=== PATIENT | male | born 1955 | race Caucasian/White ===

== ENCOUNTER 2020-11-01 23:30 | Inpatient (IN) | payer OTHER ==
[2020-11-02 00:04] VITALS: BMI 26.6
[2020-11-02 00:25] LABS: BASO % 0.8 % (0-2.0); EOS % 2.3 % (0-4.5); HEMATOCRIT 39.7 % (35.4-49); HEMOGLOBIN 13.1 GM/dL (11.7-16.9); LYMPH % 34.8 % (8-40); MCH 27.3 pg (25.7-33.7); MEAN CELL VOLUME 82.8 fl (80-96); MEAN PLT VOLUME 8.1 fl (7.5-11.1); MONO % 6.7 % (3.8-10.2); NEUT % 55.4 % (42.8-82.8); PLATELET COUNT 297 K/MM3 (134-434); RBC 4.79 M/mm3 (4.00-5.60); RDW 14.5 % (11.9-15.9); WHITE BLOOD COUNT 8.1 K/mm3 (4.0-10.0)
[2020-11-02 00:39] LABS: CHLORIDE 106 mmol/L (98-107); SODIUM 141 mmol/L (136-145)
[2020-11-02 00:41] LABS: CALCIUM 8.8 mg/dL (8.5-10.1)
[2020-11-02 00:42] LABS: ALBUMIN 3.2 g/dl (3.4-5.0); ANION GAP 6 MMOL/L (8-16); BLOOD UREA NITROGEN 29.5 mg/dL (7-18); CO2 29 mmol/L (21-32); GLUCOSE,RANDOM 113 mg/dL (74-106)
[2020-11-02 00:45] LABS: CREATININE 1.3 mg/dL (0.55-1.3); SGOT/AST 22 U/L (15-37); SGPT/ALT 27 U/L (13-61)
[2020-11-02 00:46] LABS: MAGNESIUM 2.3 mg/dL (1.8-2.4)
[2020-11-02 00:47] LABS: BILIRUBIN,TOTAL 0.2 mg/dL (0.2-1); TOT PROT 6.6 g/dl (6.4-8.2)
[2020-11-02 00:48] LABS: ALK PHOS 61 U/L (45-117)
[2020-11-02 01:20] LABS: INR 0.98 (0.83-1.09); PROTHROMBIN TIME (PATIENT) 11.9 SEC (9.7-13.0)
[2020-11-02 01:23] LABS: ACTIVATED PTT 30.1 SECONDS (25.2-36.5)
[2020-11-02] MEDS ORDERED: SODIUM CHLORIDE 0.9% 500 ML INFUS.BAG IV ONE (01:41)
[2020-11-02] MEDS ORDERED: METOPROLOL TARTRATE 25 MG TABLET (FP) PO ONE (02:46)
[2020-11-02] MEDS ORDERED: TAMSULOSIN HCL 0.4 MG CAP PO SCH (05:30)
[2020-11-02] MEDS ORDERED: TAMSULOSIN HCL 0.4 MG CAP ONE (06:44)
[2020-11-02 07:00] LABS: HEMATOCRIT 36.9 % (35.4-49); HEMOGLOBIN 12.3 GM/dL (11.7-16.9); MCHC 33.4 g/dl (32.0-35.9); MEAN CELL VOLUME 83.9 fl (80-96); RBC 4.39 M/mm3 (4.00-5.60); WHITE BLOOD COUNT 6.5 K/mm3 (4.0-10.0)
[2020-11-02 07:01] LABS: PLATELET COUNT 283 K/MM3 (134-434); RDW 14.6 % (11.9-15.9)
[2020-11-02 07:16] LABS: CHLORIDE 109 mmol/L (98-107); SODIUM 141 mmol/L (136-145)
[2020-11-02 07:27] LABS: ANION GAP 3 MMOL/L (8-16); BLOOD UREA NITROGEN 27.2 mg/dL (7-18); CO2 29 mmol/L (21-32); SGOT/AST 18 U/L (15-37); SGPT/ALT 24 U/L (13-61)
[2020-11-02 07:28] LABS: BILIRUBIN,TOTAL 0.2 mg/dL (0.2-1); GLUCOSE,RANDOM 102 mg/dL (74-106); MAGNESIUM 2.4 mg/dL (1.8-2.4); TOT PROT 5.9 g/dl (6.4-8.2)
[2020-11-02 07:30] LABS: ALK PHOS 54 U/L (45-117); CREATININE 1.1 mg/dL (0.55-1.3)
[2020-11-02 07:31] LABS: PHOSPHOROUS 4.1 mg/dL (2.5-4.9)
[2020-11-02 08:31] VITALS: BP 102/67; PULSE 77; TEMP 97.8
[2020-11-02] MEDS ORDERED: ASPIRIN COATED 81 MG TABLET.EC ONE (09:40)
[2020-11-02] MEDS ORDERED: METOPROLOL TARTRATE 25 MG TABLET (FP) ONE (09:40)
[2020-11-02] MEDS ORDERED: ENOXAPARIN NA (PORCINE) 40 MG/0.4 ML DISP.SYRIN SQ ONE (09:40)
[2020-11-02] MEDS ORDERED: ENOXAPARIN NA (PORCINE) 40 MG/0.4 ML DISP.SYRIN SQ SCH (10:00)
[2020-11-02] MEDS ORDERED: ASPIRIN COATED 81 MG TABLET.EC PO SCH (10:00)
[2020-11-02] MEDS ORDERED: METOPROLOL TARTRATE 25 MG TABLET (FP) PO SCH (10:00)
[2020-11-02] MEDS ORDERED: ATORVASTATIN CA 20 MG TABLET (FP) PO SCH (22:00)
== END 2020-11-02 12:48 | disposition home or self-care (01) | DRG 201 ==
LOC: JER 23:30 → EDSEX 23:30 → JERBED 11-02 01:19
PROVIDERS: ADMIT Hospitalist; ATTEND Internal Medicine
DX: I48.91 Unspecified atrial fibrillation (principal); N17.9 Acute kidney failure, unspecified; N40.0 Benign prostatic hyperplasia without lower urinary tract symptoms; E78.5 Hyperlipidemia, unspecified; Z85.46 Personal history of malignant neoplasm of prostate
CPT/HCPCS: 36415; 71045-TC-FY; 80053; 83735; 84100; 84439; 84443; 84484; 85025; 85027; 85610; 85730; 93005; 93010; 93306-TC; 99285-25; C9803; U0003; U0005